=== PATIENT | male | born 1930 | race Hispanic/Latino ===

== ENCOUNTER 2016-05-30 08:21 | Outpatient (CLI) | payer MEDICARE ==
--- NOTE | 2016-05-30 12:05 | Fluoroscopy Report ---
BARIUM SWALLOW INDICATION: Dysphagia. COMPARISON: None similar. FINDINGS: Barium swallow performed. Patient swallowed thick barium without any difficulty as also tolerated effervescent granules well. Grossly normal swallowing mechanism. Aspiration however noted soon after couple of initial swallows, without eliciting any cough. Exam terminated at this point. No suspicious filling defects identified. Grossly normal remainder imaged esophagus with passage of contrast into the stomach noted. No large hiatal hernia suspected. Gastroesophageal reflux assessment suboptimal. Aortic atherosclerotic calcifications. 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 CONCLUSION: 1. Aspiration noted with initial swallows of thick barium. Exam hence terminated at this point. 2. No suspicious filling defects with few incidental findings, as above. I phoned the above results to Dr. Carmona, 10:45 AM, 05/30/2016. Thank you for the opportunity to participate in this patient's care.
== END 2016-05-30 08:22 | disposition home or self-care (01) ==
LOC: FLUORO 08:21
PROVIDERS: ATTEND Otolaryngology
DX: R13.10 Dysphagia, unspecified (principal)
CPT/HCPCS: 74220

== ENCOUNTER 2016-06-14 08:56 | Outpatient (CLI) | payer MEDICARE ==
--- NOTE | 2016-06-14 14:00 | Fluoroscopy Report ---
MODIFIED BARIUM SWALLOW History: Dysphagia. Findings: Fluoroscopy was provided by the radiologist for speech therapy to assess the swallowing mechanism. Please refer to the formal report by speech therapy. Impression: Successful modified barium swallow.
== END 2016-06-14 08:57 | disposition home or self-care (01) ==
LOC: PT 08:56
PROVIDERS: ATTEND Internal Medicine Gastroenterology
DX: R13.13 Dysphagia, pharyngeal phase (principal)
CPT/HCPCS: 74230; 92611; G8996; G8997

== ENCOUNTER 2017-11-27 11:23 | Day surgery (SDC) | payer MEDICARE ==
[~2017-11-27 11:23] MED LIST: AK-Dilate ONE; IOPIDINE ONE; MYDRIACYL ONE
[2017-11-27] MEDS ORDERED: IOPIDINE OD ONE (12:30)
[2017-11-27] MEDS ORDERED: AK-Dilate OD ONE (12:31)
[2017-11-27] MEDS ORDERED: MYDRIACYL OD ONE (12:32)
[2017-11-27 12:56] VITALS: BP 138/68
== END 2017-11-27 13:21 | disposition home or self-care (01) ==
LOC: OR 11:23
PROVIDERS: ATTEND Ophthalmology
DX: H26.491 Other secondary cataract, right eye (principal); E03.9 Hypothyroidism, unspecified; J18.9 Pneumonia, unspecified organism; E78.5 Hyperlipidemia, unspecified; E13.9 Other specified diabetes mellitus without complications; E78.00 Pure hypercholesterolemia, unspecified; I10 Essential (primary) hypertension; K21.9 Gastro-esophageal reflux disease without esophagitis; M19.90 Unspecified osteoarthritis, unspecified site; Z87.442 Personal history of urinary calculi; Z98.890 Other specified postprocedural states; Z98.42 Cataract extraction status, left eye; Z98.41 Cataract extraction status, right eye; Z79.899 Other long term (current) drug therapy
CPT/HCPCS: 82962